=== PATIENT | male | born 1955 | race Hispanic/Latino ===

== ENCOUNTER 2017-06-07 16:20 | Observation (INO) | payer BC ==
[2017-06-07] MEDS ORDERED: Sodium Chloride 0.9% 1,000 ML IV STA ×2 (17:35→20:44)
--- NOTE | 2017-06-07 17:45 | ED PDOC ---
Arrival/HPI <PrabhjotsamanthaBoby - Last Filed: 06/07/17 19:34> - General Historian: Patient <Mary Robb PA-C - Last Filed: 06/07/17 21:17> - General Chief Complaint: GI Problem Time Seen by Provider: 06/07/17 17:17 - History of Present Illness Narrative History of Present Illness (Text): 06/07/17 17:37 61-year-old male with past medical history of diabetes, hypertension, and high cholesterol, complains of 1 week history of intermittent nausea and bilious vomiting, states that he feels his upper abdomen becomes hard, he then starts to feel nauseous and starts vomiting. He states that his symptoms were present for 2 days, then resolved for 3 days, then recurred again. States symptoms are worse after eating, has been taking his Nexium and [id number] Mylanta with no relief. He adds that he has seen a GI doctor in the past and had an endoscopy done, which only showed inflammation to his stomach. Otherwise: (-) abdominal pain, (-) chest pain, (-) shortness of breath, (-) back pain, (-) urinary symptoms, (-) diarrhea, (-) fever, (-) melena, (-) hematochezia. Has no history of prior abdominal surgery. PMD Danisha Baker (Mary Robb PA-C) Past Medical History - Provider Review Nursing Documentation Reviewed: Yes - Cardiac Hx Cardiac Disorders: Yes - Pulmonary Hx Respiratory Disorders: No - Neurological Hx Neurological Disorder: No - HEENT Hx HEENT Disorder: No - Renal Hx Renal Disorder: No - Endocrine/Metabolic Hx Endocrine Disorders: Yes Hx Diabetes Mellitus Type 2: Yes - Hematological/Oncological Hx Blood Disorders: No - Integumentary Hx Dermatological Disorder: No - Musculoskeletal/Rheumatological Hx Musculoskeletal Disorders: No - Gastrointestinal Hx Gastrointestinal Disorders: No - Genitourinary/Gynecological Hx Genitourinary Disorders: No - Psychiatric Hx Psychophysiologic Disorder: No Hx Substance Use: No <Mary Robb PA-C - Last Filed: 06/07/17 21:17> Family/Social History - Physician Review Nursing Documentation Reviewed: Yes Family/Social History: No Known Family HX Smoking Status: Former Smoker Hx Alcohol Use: Yes Frequency of alcohol use: Socially Hx Substance Use: No <Mary Robb PA-C - Last Filed: 06/07/17 21:17> Allergies/Home Meds <Boby Mcgarry - Last Filed: 06/07/17 19:34> <Mary Robb PA-C - Last Filed: 06/07/17 21:17> Allergies/Adverse Reactions: Allergies No Known Allergies Allergy (Verified 06/07/17 16:40) Home Medications: Home Meds Medication Instructions Recorded Confirmed Aspirin [Adult Low Dose Aspirin EC] 81 mg PO DAILY 06/07/17 06/07/17 Enalapril Maleate 10 mg PO DAILY 06/07/17 06/07/17 Fenofibrate Nanocrystallized 145 mg PO DAILY 06/07/17 06/07/17 [Fenofibrate] GlipiZIDE [Glucotrol] 5 mg PO BID 06/07/17 06/07/17 Omeprazole 40 mg PO DAILY 06/07/17 06/07/17 Rosuvastatin Calcium [Crestor] 20 mg PO DAILY 06/07/17 06/07/17 metFORMIN [glucOPHAGE] 500 mg PO BID 06/07/17 06/07/17 Review of Systems - Review of Systems Constitutional: Normal. absent: Fatigue, Weight Change, Fevers Respiratory: Normal. absent: SOB, Cough, Sputum Cardiovascular: Normal. absent: Chest Pain, Palpitations, Edema Gastrointestinal: Normal, Abdominal Pain, Nausea, Vomiting. absent: Stool Changes, Appetite Changes Genitourinary Male: Normal. absent: Dysuria, Frequency, Hematuria Musculoskeletal: Normal. absent: Arthralgias, Back Pain, Neck Pain Skin: Normal. absent: Rash, Pruritis, Skin Lesions <Mary Robb PA-C - Last Filed: 06/07/17 21:17> Physical Exam <Boyb Mcgarry - Last Filed: 06/07/17 19:34> <Mary Robb PA-C - Last Filed: 06/07/17 21:17> - Physical Exam Narrative Physical Exam (Text): 06/07/17 17:47 GENERAL APPEARANCE: Patient is awake, alert, oriented x 3, in no acute distress. SKIN: Warm, dry; (-) cyanosis. EYES: (-) conjunctival pallor, (-) scleral icterus. ENMT: Mucous membranes dry. NECK: (-) tenderness, (-) stiffness, (-) lymphadenopathy. CHEST AND RESPIRATORY: (-) rales, (-) rhonchi, (-) wheezes; breath sounds equal bilaterally. HEART AND CARDIOVASCULAR: (-) irregularity; (-) murmur, (-) gallop. ABDOMEN AND GI: (-) distention. Bowel sounds active; (-) tenderness, (-) Estrada's sign, (-) guarding, (-) rebound, (-) palpable masses, (-) CVA tenderness. EXTREMITIES: (-) deformity, (-) edema, (+) distal pulses. NEURO AND PSYCH: Mental status as above; (-) focal findings. (Cezar BARCLAY, [place]) Vital Signs Temp Pulse Resp BP Pulse Ox 06/07/17 17:34 102 H 18 155/89 H 98 06/07/17 16:40 98.8 F 115 H 20 157/95 H 98 Medical Decision Making <Boby Mcgarry - Last Filed: 06/07/17 19:34> <Mary Robb PA-C - Last Filed: 06/07/17 21:17> ED Course and Treatment: 06/07/17 17:47 61-year-old male with past medical history of diabetes, hypertension, and high cholesterol, complains of 1 week history of intermittent nausea and bilious vomiting. Differential diagnosis : dyspepsia, rule out acute cholecystitis, consider biliary colic Plan: -- Labs -- IV fluids -- Urinalysis -- EKG -- Protonix IV / Zofran IV -- Reassess and disposition -- US ABD 06/07/17 17:49 Progress note: EKG: sinus tach at 104 bpm, (-) acute ST changes, as read by DALILA. CXR : NAD, as read by DALILA. Labs reviewed : WBC is noted to be elevated at 18.9, however LFTs are wnl. On re -evaluation, pt reports improvement of nausea, still c/o mild upper abdominal discomfort. On exam, abdomen remains soft with mild RUQ tenderness. Considering labs and US findings will keep the pt for inpt obs to r/o acute cholecystitis. Zosyn IV ordered. Case d/w ANATOMY PROFESSOR Carry Joel (Dr. Raman), agrees with plan for inpt obs, request Dr. Muller for GI and vocational ed instructor surgery, Dr. Tarango. Pt and family agree with plan for inpt obs. residential leasing manager called, case d/w Dr. Stroud , who will evaluate the pt. Bridge orders placed. (Cezar BARCLAY,[place]) - Lab Interpretations Lab Results: 06/07/17 17:15 06/07/17 17:15 Lab Results 06/07/17 18:44: Urine Color Yellow, Urine Appearance Clear, Urine pH 6.0, Ur Specific [place] 1.025, Urine Protein Negative, Urine Glucose (UA) Negative, Urine Ketones Trace H, Urine Blood Negative, Urine Nitrate Negative, Urine Bilirubin Negative, Urine Urobilinogen 0.2, Ur Leukocyte Esterase Negative 06/07/17 17:15: Sodium 135, Potassium 4.4, Chloride 95 L, Carbon Dioxide 23, Anion Gap 21 H, BUN 20, Creatinine 0.8, Est GFR ( Amer) > 60, Est GFR ( Non-Af Amer) > 60, Random Glucose 174 H, Calcium 9.3, Total Bilirubin 0.8, AST 43, ALT 51, Alkaline Phosphatase 45, Troponin I < 0.01, Total Protein 7.8, Albumin 4.5, Globulin 3.3, Albumin/Globulin Ratio 1.4, Lipase 233 06/07/17 17:15: PT 12.7 H, INR 1.18 H, APTT 26.2 06/07/17 17:15: WBC 18.9 H, RBC 4.94, Hgb 14.8, Hct 41.5 L, MCV 84.0, MCH 30.0, MCHC 35.7, RDW 13.0, Plt Count 222, MPV 9.0, Gran % 81.1 H, Lymph % (Auto) 10.1 L, [place] % (Auto) 7.3 H, Eos % (Auto) 1.4 L, Baso % (Auto) 0.1, Gran # 15.28 H, Lymph # 1.9, [place] # 1.4 H, Eos # 0.3, Baso # 0.02 - RAD Interpretation Radiology Orders: 06/07/17 17:35 ABDOMEN COMPLETE [US] Stat 06/07/17 19:13 CHEST TWO VIEWS (PA/LAT) [RAD] Stat - Medication Orders Current Medication Orders: Sodium Chloride (Sodium Chloride 0.9%) 1,000 mls @ 100 mls/hr IV .Q10H STA Stop: 06/08/17 06:43 Last Admin: 06/07/17 20:52 Dose: 100 mls/hr Discontinued Medications Al Hydrox/Mg Hydrox/Simethicone (Maalox Plus 30 Ml) 30 ml PO STAT STA Stop: 06/07/17 19:15 Last Admin: 06/07/17 19:56 Dose: 30 ml Belladonna/Phenobarbital ( Elixir) 5 ml PO STAT STA Stop: 06/07/17 19:15 Last Admin: 06/07/17 19:56 Dose: 5 ml Sodium Chloride (Sodium Chloride 0.9%) 1,000 mls @ 1,000 mls/hr IV .Q1H STA Stop: 06/07/17 18:34 Last Admin: 06/07/17 17:48 Dose: 1,000 mls/hr Piperacillin Sod/Tazobactam Sod (Zosyn 3.375 In Ns 100ml) 100 mls @ 200 mls/hr IVPB STAT STA PRN Reason: Protocol Stop: 06/07/17 19:46 Last Admin: 06/07/17 19:57 Dose: 200 mls/hr Lidocaine HCl (Lidocaine 2% Viscous) 15 ml PO STAT STA Stop: 06/07/17 19:22 Last Admin: 06/07/17 19:56 Dose: 15 ml Ondansetron HCl (Zofran Inj) 4 mg IVP STAT STA Stop: 06/07/17 17:36 Last Admin: 06/07/17 17:48 Dose: 4 mg Pantoprazole Sodium (Protonix Inj) 40 mg IVP STAT STA Stop: 06/07/17 17:36 Last Admin: 06/07/17 17:48 Dose: 40 mg - PA / ANATOMY PROFESSOR / Resident Statement TING has examined the patient and agrees with the treatment plan. <Boby Mcgarry - Last Filed: 06/07/17 19:34> - PA / ANATOMY PROFESSOR / Resident Statement TING has reviewed & agrees with the documentation as recorded. TING has examined the patient and agrees with the treatment plan. <Robb Mary BARCLAY - Last Filed: 06/07/17 21:17> Disposition/Present on Arrival <Boby Mcgarry - Last Filed: 06/07/17 19:34> - Present on Arrival Any Indicators Present on Arrival: No History of DVT/PE: No History of Uncontrolled Diabetes: No Urinary Catheter: No History of Decub. Ulcer: No History Surgical Site Infection Following: None - Disposition Have Diagnosis and Disposition been Completed?: Yes Disposition Time: 19:00 Patient Plan: Observation <Mary Robb PA-C - Last Filed: 06/07/17 21:17> - Disposition Diagnosis: Abdominal pain, Acute cholecystitis, Leukocytosis Patient Problems: Current Active Problems Problem Status Onset Abdominal pain Acute Acute cholecystitis Acute Leukocytosis Acute Condition: STABLE
[2017-06-07 17:52] LABS: BASO # 0.02 K/mm3 (0.0-2.0); BASO % 0.1 % (0.0-3.0); EOS # 0.3 (0.0-0.7); EOS % 1.4 % (1.5-5.0); GRAN # 15.28 (1.4-6.5); GRAN % 81.1 % (50.0-68.0); HEMOGLOBIN 14.8 gm/dL (14.0-18.0); LYMPH # 1.9 (1.2-3.4); LYMPH % 10.1 % (22.0-35.0); MEAN CORPUSCULAR HGB CONC 35.7 g/dl (31.0-37.0); MONO # 1.4 (0.1-0.6); MONO % 7.3 % (1.0-6.0); PLATELET COUNT 222 10^3/uL (120.0-450.0); RBC 4.94 10^6/uL (3.5-6.1); WHITE BLOOD COUNT 18.9 10^3/ul (4.5-11.0)
[2017-06-07 17:58] LABS: ALB/GLOB RATIO 1.4 (1.1-1.8); ALBUMIN 4.5 g/dL (3.0-4.8); ALT/SGPT 51 U/L (7-56); AST/SGOT 43 U/L (15-59); BLOOD UREA NITROGEN 20 mg/dL (7-21); CALCIUM 9.3 mg/dL (8.4-10.5); GFR AFRICAN-AMERICAN > 60; GFR NON-AFRICAN AMERICAN > 60; LIPASE 233 U/L (23-300)
[2017-06-07 17:59] LABS: INR 1.18 (0.93-1.08); PARTIAL THROMBOPLASTIN TIME 26.2 Seconds (23.7-30.8); PROTHROMBIN TIME 12.7 Seconds (9.9-11.8)
[2017-06-07 18:17] LABS: TROPONIN I < 0.01 ng/mL
--- NOTE | 2017-06-07 18:41 | US ---
HISTORY: RUQ COMPARISON: None available. TECHNIQUE: Sonographic evaluation of the abdomen. FINDINGS: LIVER: Measures 16.3 cm in sagittal dimension. Echogenic liver may be seen in setting of hepatic parenchymal disease or fatty infiltration. No focal hepatic mass identified. The main portal vein appears patent with normal directional flow. No intrahepatic bile duct dilatation. GALLBLADDER: Gallstones. 8 mm echogenic focus suspected to reflect polyp. No gallbladder wall thickening. Negative sonographic Estrada's sign as assessed by the fund development manager. COMMON BILE DUCT: Measures 5 mm. PANCREAS: Not well visualized. RIGHT KIDNEY: Measures 10.9 x 4.9 x 5.9cm. No obstructing calculus or hydronephrosis identified. LEFT KIDNEY: Measures 10.6 x 7.1 x 6.6cm. No obstructing calculus or hydronephrosis identified. SPLEEN: Measures approximately 11.4 cm. AORTA: Not visualized. IVC: Not visualized. OTHER FINDINGS: None. IMPRESSION: Echogenic liver may be seen in setting of hepatic parenchymal disease or fatty infiltration. Cholelithiasis. 8 mm gallbladder polyp. No consensus exist regarding management of polyps in the size range. Current recommendations indicate continued surveillance with serial follow-up imaging at 3, 6, and 12 months.
[2017-06-07 18:57] LABS: URINE BILIRUBIN NEGATIVE (NEGATIVE); URINE BLOOD NEGATIVE (NEGATIVE); URINE GLUCOSE (UA) NEGATIVE (NEGATIVE); URINE LEUKOCYTE ESTERASE NEGATIVE Leu/uL (NEGATIVE); URINE NITRATE NEGATIVE (NEGATIVE); URINE PROTEIN NEGATIVE mg/dL (<30 mg/dL); URINE UROBILINOGEN 0.2 E.U./dL (<1 E.U./dL)
[2017-06-07 18:58] LABS: URINE APPEARANCE CLEAR (CLEAR); URINE COLOR YELLOW (YELLOW)
[2017-06-07] MEDS ORDERED: Atrop/Hyosc/Scopal/PB Elixir (120 ml) PO STA (19:14)
[2017-06-07] MEDS ORDERED: Lidocaine 2% Viscous 100 ml PO STA (19:14)
[2017-06-07] MEDS ORDERED: Alum-Mag Hydrox-Simethicone Susp (30 mL) PO STA (19:14)
[2017-06-07] MEDS ORDERED: Piperacillin/Tazobact 3.375 gm 100 ML IVPB STA (19:17)
[2017-06-07] MEDS ORDERED: Lactated Ringer's 1,000 ML IV SCH (21:17)
--- NOTE | 2017-06-07 21:42 | CP.PCM.CON ---
History of Present Illness - History of Present Illness History of Present Illness: General surgery consult note for Dr. Zeinab Stroud, PGY-1 Pt S & E at bedside. 61M w/PMH sig for DM, HLD consulted for abdominal pain x 1 wk. Pain is epigastric, "hard, tight pressure", radiates diffusely over abdomen, intermittent, moderate-severe. Pain alleviated by emesis. Aggravated by eating , especially fatty foods. Admits to associated N, multiple episodes of bilious, nb emesis; episodes of diarrhea at initial onset, bleching, bloating, dizziness , anorexia, 2 previous episodes of similar over last 2 yrs. Denies F/C, constipation, other complaints. PMH: DM, HLD PSH: B/L inguinal hernia repair as baby, R knee surgery All: NKDA SH: Former remote tobacco use, ETOH use 1-2 drinks/mo, denies illicit drug use. PMD: Danisha Review of Systems - Review of Systems All systems: reviewed and no additional remarkable complaints except - Constitutional Constitutional: absent: Chills, Fever, Headache - EENT Eyes: Change in Vision Ears: Dizziness Nose/Mouth/Throat: absent: Nasal Congestion, Sore Throat - Cardiovascular Cardiovascular: absent: Chest Pain, Leg Edema, Palpitations - Gastrointestinal Gastrointestinal: Abdominal Pain, Belching, Bloating, Diarrhea, Loose Stools, Nausea, Vomiting. absent: Coffee Ground Emesis, Constipation, Hematemesis, Hematochezia, Melena - Genitourinary Genitourinary: absent: Change in Urinary Stream, Dysuria, Hematuria - Musculoskeletal Musculoskeletal: absent: Back Pain, Muscle Weakness, Numbness, Tingling - Neurological Neurological: Dizziness. absent: Tingling, Weakness - Psychiatric Psychiatric: Change in Appetite Past Patient History - Past Social History Smoking Status: Former Smoker - CARDIAC Hx Cardiac Disorders: Yes - PULMONARY Hx Respiratory Disorders: No - NEUROLOGICAL Hx Neurological Disorder: No - HEENT Hx HEENT Problems: No - RENAL Hx Chronic Kidney Disease: No - ENDOCRINE/METABOLIC Hx Endocrine Disorders: Yes Hx Diabetes Mellitus Type 2: Yes - HEMATOLOGICAL/ONCOLOGICAL Hx Blood Disorders: No - INTEGUMENTARY Hx Dermatological Problems: No - MUSCULOSKELETAL/RHEUMATOLOGICAL Hx Musculoskeletal Disorders: No - GASTROINTESTINAL Hx Gastrointestinal Disorders: No - GENITOURINARY/GYNECOLOGICAL Hx Genitourinary Disorders: No - PSYCHIATRIC Hx Psychophysiologic Disorder: No Hx Substance Use: No - SURGICAL HISTORY Hx Surgeries: No Meds Allergies/Adverse Reactions: Allergies Allergy/AdvReac Type Severity Reaction Status Date / Time No Known Allergies Allergy Verified 06/07/17 16:40 - Medications Medications: Current Medications Acetaminophen (Tylenol 325mg Tab) 650 mg PO Q6H PRN PRN Reason: Pain, Mild (1-3) Docusate Sodium (Colace) 100 mg PO BID PRN PRN Reason: Constipation Piperacillin Sod/Tazobactam Sod (Zosyn 3.375 In Ns 100ml) 100 mls @ 200 mls/hr IVPB Q6 WALTER PRN Reason: Protocol Stop: 06/08/17 06:29 Lactated Ringer's (Lactated Ringer's) 1,000 mls @ 125 mls/hr IV .Q8H WALTER Ketorolac Tromethamine (Toradol) 30 mg IVP Q6H PRN PRN Reason: Pain, moderate (4-7) Morphine Sulfate (Morphine) 4 mg IVP Q6H PRN PRN Reason: Pain, severe (8-10) Physical Exam - Constitutional Appears: Non-toxic, No Acute Distress - Head Exam Head Exam: ATRAUMATIC, NORMAL INSPECTION, NORMOCEPHALIC - Eye Exam Eye Exam: EOMI, Normal appearance - ENT Exam ENT Exam: Mucous Membranes Moist, Normal Exam - Neck Exam Neck exam: Positive for: Full Rom, Normal Inspection - Respiratory Exam Respiratory Exam: Clear to Auscultation Bilateral, NORMAL BREATHING PATTERN - Cardiovascular Exam Cardiovascular Exam: REGULAR RHYTHM, +S1, +S2 - GI/Abdominal Exam GI & Abdominal Exam: Hyperactive Bowel Sounds, Soft. absent: Distended, Firm, Guarding, Tenderness - Extremities Exam Extremities exam: Positive for: normal inspection. Negative for: pedal edema, tenderness - Back Exam Back exam: FULL ROM, NORMAL INSPECTION. absent: paraspinal tenderness - Neurological Exam Neurological exam: Alert, CN II-XII Intact, Oriented x3 - Psychiatric Exam Psychiatric exam: Normal Affect, Normal Mood - Skin Skin Exam: Dry, Intact, Normal Color, Warm Results - Vital Signs Recent Vital Signs: Last Vital Signs Temp 98.8 F 06/07/17 16:40 Pulse 102 H 06/07/17 17:34 Resp 18 06/07/17 17:34 BP 155/89 H 08/03/17 17:34 Pulse Ox 98 06/07/17 17:34 - Labs Result Diagrams: 06/07/17 17:15 06/07/17 17:15 Assessment & Plan - Assessment and Plan (Free Text) Assessment: 61M w/symptomatic cholelithiasis Plan: Plan for OR in AM NPO after MN Pain regimen IVF Abx Anti-emetic AM Labs Pepcid SCD Consent in chart DW Dr Sukhdeep Stroud, PGY-1 - Date & Time Date: 06/07/17 Time: 21:05
[2017-06-07 21:47] VITALS: BMI 23.5
[2017-06-07] MEDS: Lactated Ringer's 1,000 ML IV SCH (21:49)
[2017-06-07] MEDS: Piperacillin/Tazobact 3.375 gm 100 ML IVPB SCH (23:29)
[2017-06-07] MEDS: Morphine 4 mg/ml ISec IVP PRN (23:30)
[2017-06-08] MEDS: Piperacillin/Tazobact 3.375 gm 100 ML IVPB SCH (06:18)
[2017-06-08] MEDS: Lactated Ringer's 1,000 ML IV SCH ×2 (06:19→16:39)
[2017-06-08 07:37] LABS: BASO # 0.01 K/mm3 (0.0-2.0); BASO % 0.1 % (0.0-3.0); EOS # 0.2 (0.0-0.7); EOS % 2.7 % (1.5-5.0); GRAN # 4.97 (1.4-6.5); GRAN % 64.7 % (50.0-68.0); LYMPH # 1.9 (1.2-3.4); LYMPH % 24.8 % (22.0-35.0); MEAN CELL VOLUME 85.1 fL (80.0-105.0); MEAN CORPUSCULAR HEMOGLOBIN 28.8 pg (25.0-35.0); MEAN CORPUSCULAR HGB CONC 33.9 g/dl (31.0-37.0); MEAN PLATELET VOLUME 9.1 fl (7.0-11.0); MONO # 0.6 (0.1-0.6); MONO % 7.7 % (1.0-6.0); PLATELET COUNT 166 10^3/uL (120.0-450.0); RBC 4.16 10^6/uL (3.5-6.1); RED CELL DISTRIBUTION WIDTH 13.3 % (11.5-14.5); WHITE BLOOD COUNT 7.7 10^3/ul (4.5-11.0)
--- NOTE | 2017-06-08 07:52 | RAD ---
HISTORY: COMPARISON: No prior. TECHNIQUE: Chest PA and lateral FINDINGS: LINES AND TUBES: None. LUNG AND PLEURA: Lungs are well inflated and clear. There are no pleural effusions or pneumothorax. HEART AND MEDIASTINUM: The heart is not enlarged. The hilar and mediastinal contours are within normal limits. SKELETAL STRUCTURES: The bony structures are within normal limits for the patient's age. VISUALIZED UPPER ABDOMEN: Normal. OTHER FINDINGS: None. IMPRESSION: No active pulmonary disease.
[2017-06-08 08:05] LABS: ALB/GLOB RATIO 1.5 (1.1-1.8); ALBUMIN 3.3 g/dL (3.0-4.8); ALT/SGPT 46 U/L (7-56); AST/SGOT 41 U/L (15-59); BLOOD UREA NITROGEN 17 mg/dL (7-21); CALCIUM 8.2 mg/dL (8.4-10.5); GFR AFRICAN-AMERICAN > 60; GFR NON-AFRICAN AMERICAN > 60
[2017-06-08 08:11] LABS: INR 1.23 (0.93-1.08); PARTIAL THROMBOPLASTIN TIME 27.6 Seconds (23.7-30.8); PROTHROMBIN TIME 13.3 Seconds (9.9-11.8)
--- NOTE | 2017-06-08 09:08 | CARD ---
APPROVED REPORT EKG Measurement Heart [id number] <Conclusion> Sinus tachycardia NSSTW changes
--- NOTE | 2017-06-08 09:13 | CON ---
DATE OF CONSULTATION: 06/08/2017 REQUESTING PHYSICIAN: Doug Raman MD REASON FOR CONSULTATION: I have been asked to see this 61-year-old male with a history of diabetes mellitus for one year who comes to the hospital with several days of mid abdominal pain associated with nausea and vomiting. He denies any fevers, chills, hematemesis, melena or rectal bleeding. The patient states that the pain occurs after eating. Ultrasound of the abdomen performed in the emergency room showed gallstones in a 8 mm gallbladder polyp. The patient has had similar episodes in the past. The patient had an endoscopy several years ago with Dr. Baker which revealed "gastritis." The patient states that approximately one week ago he has had several days of diarrhea associated with nausea and vomiting, but the diarrhea subsided. PAST MEDICAL HISTORY: Notable for diabetes mellitus for one year, hyperlipidemia. PAST SURGICAL HISTORY: Notable for inguinal hernia surgery as a child as well as right knee surgery. SOCIAL HISTORY: Denies cigarette smoking or alcohol use. FAMILY HISTORY: Noncontributory. REVIEW OF SYSTEMS: A 14-point review of systems is notable for abdominal pain, nausea and vomiting. PHYSICAL EXAMINATION: GENERAL: A well-developed male lying in bed, no acute distress. VITAL SIGNS: Reveal temperature of 98, blood pressure 106/64, and heart rate of 79. HEENT: Reveal sclerae to be white, conjunctivae pale. NECK: Supple. LUNGS: Chest reveal lungs to be clear. HEART: Exam reveals a regular rate and rhythm. ABDOMEN: Soft and nontender. No mass. EXTREMITIES: Show no edema. LABORATORY DATA: Reveals white blood cell count 7.7, hemoglobin 12. Chemistries reveal blood sugar of 157, AST/ALT, alkaline phosphatase were all normal. Ultrasound of the abdomen shows gallstones as well as an 8 mm gallbladder polyp. There is no biliary dilatation. IMPRESSION: A 61-year-old male with intermittent mid abdominal pain associated with nausea and vomiting with gallstones and gallbladder polyp. Suspect that the patient has biliary colic. He is also diabetic. RECOMMENDATION: Proceed with cholecystectomy. Carlos Quiros MD MTDAntoine
[2017-06-08] MEDS: Ampicillin/Sulbactam 3 GM in Sodium Chloride 0.9% 100 ML IVPB SCH ×3 (11:22→23:05)
[2017-06-08] MEDS ORDERED: Propofol 10 mg/ml Inj (20 ML) ONE (11:56)
[2017-06-08] MEDS ORDERED: Midazolam 2 MG/2 ML VIAL ONE (11:57)
[2017-06-08] MEDS ORDERED: Rocuronium 10 mg/ml (5 ml) ONE (11:58)
[2017-06-08] MEDS ORDERED: Neostigmine Methylsulfate 3mg/3ml Syringe IV ONE (12:14)
[2017-06-08] MEDS ORDERED: Glycopyrrolate 0.2 mg/ml (2ml vial) ONE (12:14)
[2017-06-08] MEDS ORDERED: HYDROmorphone 0.5 mg/0.5 ml ISec IVP PRN (14:14)
[2017-06-08] MEDS ORDERED: Lactated Ringer's 1,000 ML IV SCH (14:14)
[2017-06-08] MEDS ORDERED: Liquid Adhesive TOP ONE (14:46)
--- NOTE | 2017-06-08 14:57 | PCM.SURG1 ---
Surgeon's Initial Post Op Note - Surgeon's Notes Surgeon: Dr. Tarango Electrical Software Engineer: Dr. Debora Rodriguez Type of Anesthesia: General Endo Pre-Operative Diagnosis: acute cholecystitis Operative Findings: see op report Post-Operative Diagnosis: same Operation Performed: laparoscopic cholecystectomy Specimen/Specimens Removed: gallbladder Estimated Blood Loss: EBL {In ML}: 15 Blood Products Given: N/A Drains Used: No Drains Post-Op Condition: Good Date of Surgery/Procedure: 06/08/17 Time of Surgery/Procedure: 14:57
[2017-06-08] MEDS ORDERED: HYDROmorphone 0.5 mg/0.5 ml ISec ONE (15:38)
[2017-06-08] MEDS: Morphine 4 mg/ml ISec IVP PRN ×2 (16:35→23:09)
[2017-06-08 17:06] VITALS: RESP 19; O2SAT 95
--- NOTE | 2017-06-08 18:53 | CP.PCM.HP ---
History of Present Illness - History of Present Illness History of Present Illness: CC: Abdominal pain Patient is a 61 year old man with a PMH of DM, HTN, and HLD, who presents with intermittent mid abdominal pain associated with nausea and bilious vomiting for 1 week. Several days ago he had diarrhea, which has subsided. The pain occurs after eating, especially fatty foods. The pain is not alleviated with Nexium or OTC Mylanta. Denies fevers, chills, shortness of breath, back pain, hematemesis, melena. US showed gallstones and 8mm gallbladder polyp. He has similar episodes in the past. PMH: DM, HTN, and HLD PSH: inguinal hernia, right knee surgery Social: former smoker, social alcohol use, denies substance use FMH: none Allergies: none Meds: ASA, enalapril maleate, fenofibrate, Glipizide, omeprazole, Rosuvastatin calcium, metformin Present on Admission - Present on Admission Any Indicators Present on Admission: No History of DVT/PE: No History of Uncontrolled Diabetes: No Urinary Catheter: No Decubitus Ulcer Present: No Review of Systems - Hematologic/Lymphatic Additional comments: Constitutional: pt denies fever, chills, generalized weakness ENT: pt denies dysphagia, otalgia, hearing deficit, rhinorrhea Eyes: pt denies sudden loss of vision, diplopia, blurred vision MSK: pt denies muscle stiffness, extremity cramping Cardio: pt denies heart murmur, cp Pulm: pt denies sob, cough, hemoptysis, wheeze GI: + abdominal pain, n/v/d, pt denies loss of appetite, constipation, melena, hematemesis : pt denies burning on urination, urinary frequency, hematuria, urinary urgency Neuro: pt denies paresis, SMITH, paresthesia, dizziness, numbness, tingling Derm: pt denies nail changes Endo: pt denies night sweats, polydipsia Psych: Psych: pt denies anxiety, depression, mood changes Past Patient History - Infectious Disease Hx of Infectious Diseases: None - Past Social History Smoking Status: Former Smoker - CARDIAC Hx Cardiac Disorders: Yes - PULMONARY Hx Respiratory Disorders: No - NEUROLOGICAL Hx Neurological Disorder: No - HEENT Hx HEENT Problems: No - RENAL Hx Chronic Kidney Disease: No - ENDOCRINE/METABOLIC Hx Endocrine Disorders: Yes Hx Diabetes Mellitus Type 2: Yes - HEMATOLOGICAL/ONCOLOGICAL Hx Blood Transfusions: No Hx Blood Transfusion Reaction: No - INTEGUMENTARY Hx Dermatological Problems: No - MUSCULOSKELETAL/RHEUMATOLOGICAL Hx Musculoskeletal Disorders: No - GASTROINTESTINAL Hx Gastrointestinal Disorders: No - GENITOURINARY/GYNECOLOGICAL Hx Genitourinary Disorders: No - PSYCHIATRIC Hx Psychophysiologic Disorder: No Hx Substance Use: No - SURGICAL HISTORY Hx Surgeries: Yes - ANESTHESIA Hx Anesthesia Reactions: No Hx Malignant Hyperthermia: No Meds Allergies/Adverse Reactions: Allergies Allergy/AdvReac Type Severity Reaction Status Date / Time No Known Allergies Allergy Verified 06/07/17 16:40 Physical Exam - Additional Findings Additional findings: Constitutional: a&o x 4, no acute distress Head and Neck: neck supple, no jvd, trachea midline, carotid midline, no cervical/head mass Eyes: libia, nonicteric sclera, eom intact ENT: auditory acuity grossly intact, throat not congested, no nasal deformity Cardio: rrr, no m/r/g, no carotid bruit, nml s1, s2 Pulm: no accessory muscle use, equal nml breath sounds bilaterally, ctab Abd: mild RUQ tenderness, s/nd, nbs x 4 q, no palpable masses Derm: no rashes, no ulcers Extr: no cyanosis, no edema, no calf tenderness, no lesions, no varicosities Neuro: cn II-XII grossly intact, ue and le 5/5 muscle strength bilaterally, no los ue, le bilaterally and core Results - Vital Signs Recent Vital Signs: Last Vital Signs Temp 97.9 F 06/08/17 16:00 Pulse 86 06/08/17 16:00 Resp 19 06/08/17 16:00 BP 118/73 06/08/17 16:00 Pulse Ox 95 06/08/17 16:00 - Labs Result Diagrams: 06/08/17 07:00 06/08/17 07:00 Labs: Laboratory Results - last 24 hr 06/08/17 06/08/17 06/08/17 07:00 07:00 07:00 WBC 7.7 D RBC 4.16 Hgb 12.0 L Hct 35.4 L MCV 85.1 MCH 28.8 MCHC 33.9 RDW 13.3 Plt Count 166 MPV 9.1 Gran % 64.7 Lymph % (Auto) 24.8 [place] % (Auto) 7.7 H Eos % (Auto) 2.7 Baso % (Auto) 0.1 Gran # 4.97 Lymph # 1.9 [place] # 0.6 Eos # 0.2 Baso # 0.01 PT 13.3 H INR 1.23 H APTT 27.6 Sodium 136 Potassium 4.0 Chloride 100 Carbon Dioxide 25 Anion Gap 15 BUN 17 Creatinine 0.9 Est GFR ( Amer) > 60 Est GFR (Non-Af Amer) > 60 POC Glucose (mg/dL) Random Glucose 130 H Calcium 8.2 L Total Bilirubin 0.7 AST 41 ALT 46 Alkaline Phosphatase 32 L Total Protein 5.5 L Albumin 3.3 Globulin 2.2 Albumin/Globulin Ratio 1.5 06/08/17 06/08/17 06/08/17 07:48 11:11 16:50 WBC RBC Hgb Hct MCV MCH MCHC RDW Plt Count MPV Gran % Lymph % (Auto) [place] % (Auto) Eos % (Auto) Baso % (Auto) Gran # Lymph # [place] # Eos # Baso # PT INR APTT Sodium Potassium Chloride Carbon Dioxide Anion Gap BUN Creatinine Est GFR ( Amer) Est GFR (Non-Af Amer) POC Glucose (mg/dL) 157 H 133 H 194 H Random Glucose Calcium Total Bilirubin AST ALT Alkaline Phosphatase Total Protein Albumin Globulin Albumin/Globulin Ratio Assessment & Plan - Assessment and Plan (Free Text) Assessment: Patient is a 61 year old man with a past medical history of DM, HTN, HLD, complaining of a intermittnet abdominal pain associated with nausea and bilious vomiting Plan: 1. Biliary Colic rule out cholecystitis - On admission WBC elevated 18.9 - AUS showing 8 mm gb polyp and cholelithiasis - Consults for GI - Consult for General surgery with possible cholecystectomy - Unasyn 2. Diabetes - Metformin, Glipizide - Accuchecks 3. HTN - Monitor BP - Lisinopril 10 4. HLD - Lipitor 80 5. GI/DVT PPx - protonix, SCDs - Date & Time Date: 06/08/17 Time: 19:05
--- NOTE | 2017-06-08 21:19 | OP ---
PROCEDURE DATE: 06/08/2017. SURGEON: Dr. Tarango. METAL DEALER: Dr. Garrett and Dr. Cazares. ANESTHESIA: General, Dr. Ceja. PREOPERATIVE DIAGNOSIS: Cholecystitis. POSTOPERATIVE DIAGNOSIS: Cholelithiasis. PROCEDURE: Laparoscopic cholecystectomy. DESCRIPTION OF OPERATION: With the patient in the supine position under adequate general anesthesia, the abdomen was prepped and draped in the usual sterile manner. A Veress needle puncture was performed to the umbilicus with inflation to 15 cm water pressure of CO2 and a 10 mL laparoscopic trocar was inserted via an supraumbilical incision. Under direct vision, additional trocars were inserted in the epigastrium and right costal margin. The liver was visualized. It was noted to be moderately to markedly enlarged with moderate cirrhosis. The gallbladder was identified. It was not acutely inflamed, however, there were significant adhesions of the omentum to the area of the gallbladder and adjacent liver consistent with previous episodes of inflammation. The gallbladder fundus was grasped and elevated and the omental adhesions were divided sharply from the area of the liver and taken down from the peritoneal surface of the gallbladder to expose the infundibular portion of the gallbladder. Significant inflammatory response also consistent with previous inflammation was also noted around the infundibular portion of the gallbladder. The infundibulum was grasped and retracted laterally and the cystic duct was identified and dissected. The cystic duct was cleared down toward the junction with the common bile duct. The cystic duct was then triply clipped and divided. Anterior and posterior branches of the cystic artery were identified, each was triply clipped and divided and the gallbladder was dissected free of the liver bed using electrocautery with care being taken not to violate the plane of the liver. There was moderate thickening of the liver bed consistent with the acute and chronic inflammation. The gallbladder was dissected free of the liver bed using the electrocautery. The liver bed was inspected for hemostasis, then the dissection was completed. The gallbladder was placed in a specimen retrieval bag and removed via the umbilical port site. It was noted to be packed with multiple somewhat friable dark bilirubin stones. The right upper quadrant was irrigated and suctioned. The pneumoperitoneum was released and the trocars were removed. The umbilical and epigastric port sites were closed with fascial sutures of 0 Vicryl. All incisions were closed with 4-0 Monocryl subcuticular sutures and Steri-Strips. Dry sterile dressings were applied. The patient tolerated the procedure well and transferred to recovery room in stable condition. ESTIMATED BLOOD LOSS FOR THE PROCEDURE: 15 mL. Nirali Tarango MD MTDAntoine
[2017-06-09] MEDS: Ampicillin/Sulbactam 3 GM in Sodium Chloride 0.9% 100 ML IVPB SCH (05:12)
[2017-06-09] MEDS ORDERED: Pantoprazole 40 mg EC Tab PO SCH (07:30)
[2017-06-09 08:36] VITALS: BP 103/61; PULSE 75; TEMP 98.2
--- NOTE | 2017-06-09 09:58 | CP.PCM.DIS ---
Provider - Provider Date of Admission: 06/07/17 20:13 Attending physician: Doug Raman MD Primary care physician: Doug Raman MD Time Spent in preparation of Discharge (in minutes): 30 Diagnosis - Discharge Diagnosis (1) Acute cholecystitis Status: Acute Hospital Course - Lab Results Lab Results: Most Recent Lab Values WBC 7.7 10^3/ul (4.5-11.0) D 06/08/17 07:00 RBC 4.16 10^6/uL (3.5-6.1) 06/08/17 07:00 Hgb 12.0 gm/dL (14.0-18.0) L 06/08/17 07:00 Hct 35.4 % (42.0-52.0) L 06/08/17 07:00 MCV 85.1 fL (80.0-105.0) 06/08/17 07:00 MCH 28.8 pg (25.0-35.0) 06/08/17 07:00 MCHC 33.9 g/dl (31.0-37.0) 06/08/17 07:00 RDW 13.3 % (11.5-14.5) 06/08/17 07:00 Plt Count 166 10^3/uL (120.0-450.0) 06/08/17 07:00 MPV 9.1 fl (7.0-11.0) 06/08/17 07:00 Gran % 64.7 % (50.0-68.0) 06/08/17 07:00 Lymph % (Auto) 24.8 % (22.0-35.0) 06/08/17 07:00 [place] % (Auto) 7.7 % (1.0-6.0) H 06/08/17 07:00 Eos % (Auto) 2.7 % (1.5-5.0) 06/08/17 07:00 Baso % (Auto) 0.1 % (0.0-3.0) 06/08/17 07:00 Gran # 4.97 (1.4-6.5) 06/08/17 07:00 Lymph # 1.9 (1.2-3.4) 06/08/17 07:00 [place] # 0.6 (0.1-0.6) 06/08/17 07:00 Eos # 0.2 (0.0-0.7) 06/08/17 07:00 Baso # 0.01 K/mm3 (0.0-2.0) 06/08/17 07:00 PT 13.3 Seconds (9.9-11.8) H 06/08/17 07:00 INR 1.23 (0.93-1.08) H 06/08/17 07:00 APTT 27.6 Seconds (23.7-30.8) 06/08/17 07:00 Sodium 136 mmol/L (132-148) 06/08/17 07:00 Potassium 4.0 mmol/L (3.6-5.0) 06/08/17 07:00 Chloride 100 mmol/L (98-107) 06/08/17 07:00 Carbon Dioxide 25 mmol/L (21-33) 06/08/17 07:00 Anion Gap 15 (10-20) 06/08/17 07:00 BUN 17 mg/dL (7-21) 06/08/17 07:00 Creatinine 0.9 mg/dL (0.5-1.4) 06/08/17 07:00 Est GFR ( Amer) > 60 06/08/17 07:00 Est GFR (Non-Af Amer) > 60 06/08/17 07:00 POC Glucose (mg/dL) 136 mg/dL (65-110) H 06/09/17 07:33 Random Glucose 130 mg/dL (70-110) H 06/08/17 07:00 Calcium 8.2 mg/dL (8.4-10.5) L 06/08/17 07:00 Total Bilirubin 0.7 mg/dL (0.2-1.3) 06/08/17 07:00 AST 41 U/L (15-59) 06/08/17 07:00 ALT 46 U/L (7-56) 06/08/17 07:00 Alkaline Phosphatase 32 U/L (38-133) L 06/08/17 07:00 Troponin I < 0.01 ng/mL 06/07/17 17:15 Total Protein 5.5 g/dL (5.8-8.3) L 06/08/17 07:00 Albumin 3.3 g/dL (3.0-4.8) 06/08/17 07:00 Globulin 2.2 gm/dL 06/08/17 07:00 Albumin/Globulin Ratio 1.5 (1.1-1.8) 06/08/17 07:00 Lipase 233 U/L (23-300) 06/07/17 17:15 Urine Color Yellow (YELLOW) 06/07/17 18:44 Urine Appearance Clear (CLEAR) 06/07/17 18:44 Urine pH 6.0 (4.7-8.0) 06/07/17 18:44 Ur Specific [place] 1.025 (1.005-1.035) 06/07/17 18:44 Urine Protein Negative mg/dL (<30 mg/dL) 06/07/17 18:44 Urine Glucose (UA) Negative mg/dL (NEGATIVE) 06/07/17 18:44 Urine Ketones Trace mg/dL (NEGATIVE) H 06/07/17 18:44 Urine Blood Negative (NEGATIVE) 06/07/17 18:44 Urine Nitrate Negative (NEGATIVE) 06/07/17 18:44 Urine Bilirubin Negative (NEGATIVE) 06/07/17 18:44 Urine Urobilinogen 0.2 E.U./dL (<1 E.U./dL) 06/07/17 18:44 Ur Leukocyte Esterase Negative Leo/uL (NEGATIVE) 06/07/17 18:44 - Hospital Course Hospital Course: 61M w/ PMHX of DM, HLD presented to the Emergency Department on 06/07/17 for epigastric pain that was relieved by vomiting for one week. Acute cholecystitis was confirmed after labs and imaging. Patient underwent Laparoscopic cholecystectomy. Patient tolerated procedure well with no complications. Post operatively there were no complications. Diet well tolerated, patient ambulating , pain properly managable, and good bowel function. Patient to be discharged today in good and stable condition and follow up with Dr. Tarango in one week. Discharge Exam - Head Exam Head Exam: ATRAUMATIC, NORMAL INSPECTION, NORMOCEPHALIC - ENT Exam ENT Exam: Mucous Membranes Moist. absent: Mucous Membranes Dry - Respiratory Exam Respiratory Exam: NORMAL BREATHING PATTERN, UNREMARKABLE. absent: Accessory Muscle Use, Wheezes, Respiratory Distress - Cardiovascular Exam Cardiovascular Exam: REGULAR RHYTHM, +S1, +S2 - GI/Abdominal Exam GI & Abdominal Exam: absent: Guarding Additional comments: Incision C/D/I - Neurological Exam Neurological exam: Alert, Normal Gait, Oriented x3 - Skin Skin Exam: Normal Color, Warm Discharge Plan - Follow Up Plan Condition: STABLE Disposition: HOME/ ROUTINE Instructions: Cholecystitis (DC), Cholecystitis (GEN) Additional Instructions: Can shower tomorrow. Steristrips covering the incision leave on, and it will fall off by itself. Do not soak in baths or go swimming in the ocean. No heavy lifting for 4 weeks. follow up with Dr. Tarango in 1 week. If experience severe Chest pain, severe abdominal pain, sudden shortness of breath, fevers over 100.4 go the Emergency Room. Referrals: Doug Raman MD [Primary Care Provider] -
[2017-06-09] MEDS ORDERED: Non Formulary Medication (Rosuvastatin Calcium [Crestor] 20 MG) PO SCH (10:00)
[2017-06-09] MEDS ORDERED: Non Formulary Medication (Omeprazole [Omeprazole] 40 MG) PO SCH (10:00)
[2017-06-09] MEDS ORDERED: ENALAPRIL MALEATE 10 MG PO SCH (10:00)
== END 2017-06-09 13:34 | disposition home or self-care (01) ==
LOC: ED 16:20 → ERH 20:13 → 3RSO 21:28
PROVIDERS: ADMIT Internal Medicine; ATTEND Internal Medicine
DX: K80.00 Calculus of gallbladder with acute cholecystitis without obstruction (principal); E78.5 Hyperlipidemia, unspecified; E11.9 Type 2 diabetes mellitus without complications; I10 Essential (primary) hypertension; K29.70 Gastritis, unspecified, without bleeding; E78.00 Pure hypercholesterolemia, unspecified; Z87.891 Personal history of nicotine dependence; Z79.84 Long term (current) use of oral hypoglycemic drugs; Z79.82 Long term (current) use of aspirin
CPT/HCPCS: 36415; 47562; 71020; 76700; 80053; 81003; 82948; 83690; 84484; 85025; 85610; 85730; 87086; 88304; 93005; 96361; 96365; 96366; 96367; 96375; 96376; 99285; C9113; G0378; J0295; J1170; J1885; J2001; J2250; J2270; J2405; J2543; J2704; J2710; J3010; J7040; J7120